=== PATIENT | female | born 1990 | race Caucasian/White ===

== ENCOUNTER 2018-05-01 10:53 | Emergency (ER) | payer OTHER ==
[~2018-05-01] VITALS: Ht 152.4 cm; Wt 45.4 kg
[2018-05-01 11:12] VITALS: BP 125/84
[2018-05-01] MEDS ORDERED: LEVOFLOXACIN (500MG) 500 MG TABLET ONE (11:47)
[2018-05-01] MEDS ORDERED: CEPHALEXIN MONOHYDRATE 500 MG CAPSULE PO ONE ×2 (11:47→12:00)
[2018-05-01] MEDS ORDERED: TDAP [DIPH/PERTUSSIS/TET] 0.5 ML VIAL IM ONE ×2 (11:47→12:00)
[2018-05-01] MEDS ORDERED: LEVOFLOXACIN (500MG) 500 MG TABLET PO ONE (12:00)
== END 2018-05-01 11:58 | disposition home or self-care (01) ==
LOC: ER 10:57
DX: L03.115 Cellulitis of right lower limb (principal)
CPT/HCPCS: 90471; 90715; 99283; A4606; Z7610